=== PATIENT | male | born 1985 | race Two or more races ===

== ENCOUNTER 2018-12-27 16:17 | Emergency (ER) | payer SELFPAY ==
[~2018-12-27] VITALS: Ht 175.3 cm; Wt 93.0 kg
[2018-12-27] MEDS ORDERED: TETANUS, DIPHTHERIA, PERTUSSIS VAC/PF 0.5ML (>7YR OLD) IM ONE (19:30)
[2018-12-27 21:01] VITALS: BP 114/67
== END 2018-12-27 21:02 | disposition home or self-care (01) ==
LOC: ER 16:17
DX: S61.305A Unspecified open wound of left ring finger with damage to nail, initial encounter (principal); S61.307A Unspecified open wound of left little finger with damage to nail, initial encounter; X58.XXXA Exposure to other specified factors, initial encounter; Y93.G3 Activity, cooking and baking; Y92.511 Restaurant or cafe as the place of occurrence of the external cause; Y99.8 Other external cause status
CPT/HCPCS: 73130; 90471; 90715; 99283